=== PATIENT | female | born 1935 | race Caucasian/White ===

== ENCOUNTER 2017-08-13 08:00 | Observation (INO) ==
[2017-08-27] MEDS ORDERED: NS 1,000 ML IV SCH (07:30)
[2017-08-27] MEDS ORDERED: SALINE FLUSH 10ml SYRINGE IV PRN (07:30)
[2017-08-27] MEDS ORDERED: [UNRECOGNIZED DRUG - OTHER] XX SCH (07:30)
--- NOTE | 2017-08-27 08:16 | Cardiology History & Physical ---
History of Present Illness Chief complaint: palpitations HPI: Tootie is an 81 year old female who is well known to Dr. Lucero with a history of palpitations, CAD, HTN and HLD. TAY monitor showed frequent PVCs. She is being admitted today for observation and initiation of Mexiletine for antiarrhythmic therapy. Review of Systems - Constitutional Constitutional: Absent: chills, fatigue, fever(s) - EENMT Eyes: Absent: change in vision Balance: Absent: vertigo Mouth/Throat: Absent: sore throat - Cardiovascular Cardiovascular: Present: palpitations. Absent: chest pain, syncope, dyspnea on exertion, orthopnea, edema Rhythm: Present: abnormal rhythm Vascular: Absent: pedal edema - Respiratory Respiratory: Absent: cough, dyspnea, dyspnea on exertion - Gastrointestinal Gastrointestinal: Absent: abdominal pain, constipation, nausea, vomiting - Genitourinary Genitourinary: Absent: dysuria - Integumentary/Breasts Integumentary: Present: other (hives) - Neurological Neurological: Absent: dizziness - Endocrine Endocrine: Present: palpitations PFSH Patient Stated Medical History Cataracts Yes Hypertension Yes Other Cardiology Yes: PVC'S Bronchitis Yes: "YEARS AGO" Gastroesophageal Reflux Yes Disease Hiatal Hernia Yes Other GI Yes: CONSTIPATION Hx Kidney Stones Yes Hx Urinary Tract Infection Yes Osteoarthritis Yes Other Musculoskeletal Yes: herniated disc Shingles Yes Anesthesia Reactions Yes: slow to wake Blood Transfusions Yes Allergies chronic back pain hyperlipidemia Surgical History: TKR. Appendectomy. cholecystectomy. Hysterectomy Family History: Mother - [place] age 83, not cause of Maternal grandmother - HTN - Social History Smoking status: Never smoker second hand exposure: No Substance use type: does not use Alcohol intake frequency: does not drink Medications Home Medications Medication Instructions Recorded Confirmed Type Omeprazole 20 mg PO DAILY #0 12/29/08 08/27/17 History Fenofibrate [Tricor] 145 mg PO WS #0 10/19/12 08/27/17 History Multivit-Min/FA/Lycopen/Lutein 1 tab PO DAILY #0 01/07/14 08/27/17 History [Centrum Silver Tablet] Aspirin [Aspirin EC] 81 mg PO HS 10/11/16 08/27/17 History Fluticasone Nasal [place] [Flonase] 2 spray VEENA DAILY PRN 10/11/16 08/27/17 History NIFEdipine XL [Procardia Xl] 30 mg PO 2030 06/13/17 08/27/17 History Calcium 600 + D [Caltrate + D] 1 tab PO WS 08/26/17 08/27/17 History Labetalol [Normodyne] 50 mg PO 0900,1730 08/27/17 08/27/17 History Losartan/Hctz 100/25 [Hyzaar 1 tab PO DAILY 08/27/17 08/27/17 History 100/25] methylPREDNISolone 4 mg PO DAILY 08/27/17 08/27/17 History [Methylprednisolone] Mexiletine [Mexitil] 150 mg PO TIDWM #90 cap 08/28/17 Rx Allergies Allergy/AdvReac Type Severity Reaction Status Date / Time Penicillins Allergy Intermediate HIVES, Verified 08/27/17 08:11 SWELLING clindamycin Allergy Unknown ESOPHAGEAL Verified 08/27/17 08:11 BURNING [id number] Reductase Allergy Unknown MYALGIA Verified 08/27/17 08:11 Inhibitor Exam - Constitutional no acute distress, well nourished, cooperative - Routine HEENT Exam Head: Present: normocephalic ENT: Present: mucous membranes moist - Routine Neck Exam Absent: JVD, carotid bruit - Routine Chest/Breast/Axilla Exam Chest wall: Absent: tenderness - Routine Respiratory Exam Present: CTA bilaterally. Absent: rales, wheezes - Routine Cardiovascular Exam Present: no murmur, irregular rhythm - Routine Abdominal Exam Present: soft, non tender - Routine Extremities Exam Present: no edema, pulses intact - Routine Skin Exam Present: intact, dry, warm - Routine Neurological Exam Present: alert, oriented X3 - Routine Psychiatric Exam Present: normal affect, normal thought process Results 08/27/17 08:17 08/28/17 04:31 EKG interpretations - EKG EKG shows: bradycardia, sinus rhythm - NH, pacemaker, normal Myocardial infarction: inferior NH (old age indeterminate) Hospital Course This is a general summary of the patient's hospital course. For more details refer to the complete medical record. Time spent with patient: 25 - 35 minutes Resuscitation Status: Full Code Assessment and Plan - Attestation Attestation Narrative: 09/03/17 13:26 Recommendation After examining the patient I agree with the above assessment. I am involved in the formulation of the patient's plan of care. - Assessment and Plan (1) Ventricular premature depolarization Status: Acute C/O palpitations - TAY showed frequent PVCs. - She is being admitted today for observation and initiation of Mexiletine for antiarrhythmic therapy. - EKG on arrival and in am - Monitor cardiac telemetry (2) Atherosclerotic heart disease of [place] coronary artery without angina pectoris Status: Chronic Aspirin daily - Continue risk management (3) Essential (primary) hypertension Status: Chronic well controlled on current therapy, continue current therapy with routine monitoring. (4) Mixed hyperlipidemia Status: Chronic Does not tolerate Statin therapy. - Takes 145mg Fenofibrate - continue current therapy with routine monitoring.
[2017-08-27 08:17] VITALS: BMI 26.4
[2017-08-27] MEDS ORDERED: FLUTICASONE NASAL SPRAY 50mcg EA NOSTRIL PRN (08:33)
[2017-08-27] MEDS: LABETALOL 100 MG PO SCH ×2 (08:49→17:49)
[2017-08-27] MEDS: MEXILETINE 150 MG CAPSULE PO SCH ×3 (08:57→17:50)
[2017-08-27] MEDS: [UNRECOGNIZED DRUG - OTHER] PO SCH (09:17)
[2017-08-27] MEDS: MULTIVITAMIN PO SCH (09:17)
[2017-08-27] MEDS ORDERED: CHOLECALCIFEROL PO SCH (17:30)
[2017-08-27] MEDS ORDERED: FENOFIBRATE 145 MG PO SCH (17:30)
[2017-08-27] MEDS ORDERED: CALCIUM 200 MG PO SCH (17:30)
[2017-08-27] MEDS ORDERED: --POM--NIFEdipine XL 30 MG TABLET PO SCH (20:30)
[2017-08-27] MEDS ORDERED: --POM--ASPIRIN *EC* 81 MG TABLET PO SCH (21:00)
[2017-08-28] MEDS ORDERED: --POM--OMEPRAZOLE 20 MG CAPSULE PO SCH (06:30)
[2017-08-28] MEDS ORDERED: METHYLPREDNISOLONE 4 MG PO SCH (08:00)
[2017-08-28 08:02] VITALS: BP 160/61; RESP 16; TEMP 97.7; O2SAT 96
[2017-08-28] MEDS: [UNRECOGNIZED DRUG - OTHER] PO SCH (08:10)
[2017-08-28] MEDS: MULTIVITAMIN PO SCH (08:10)
[2017-08-28] MEDS: LABETALOL 100 MG PO SCH (08:10)
[2017-08-28] MEDS: MEXILETINE 150 MG CAPSULE PO SCH (08:10)
[2017-08-28 08:44] VITALS: PULSE 68
== END 2017-08-28 10:55 | disposition home or self-care (01) ==
LOC: SRG
PROVIDERS: ADMIT Internal Medicine Cardiovascular Disease; ATTEND Internal Medicine Cardiovascular Disease